=== PATIENT | male | born 1980 | race African-American/Black ===

== ENCOUNTER 2016-12-27 17:01 | Emergency (ER) | payer SELFPAY ==
[2016-12-27 17:22] VITALS: TEMP 97
[2016-12-27] MEDS ORDERED: SODIUM CHLORIDE 0.9% 1,000 ML IV STA (18:31)
[2016-12-27] MEDS ORDERED: DICYCLOMINE 10 MG/ML 2 ML AMP IM STA (18:31)
[2016-12-27] MEDS ORDERED: METOCLOPRAMIDE 5 MG/ML 2 ML VIAL IVP STA (18:31)
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
[2016-12-27 19:59] LABS: Basophils % (A) 0 %; CHCM 31.7; Eosinophils # (A) 0.1 k/uL (0-0.7); Eosinophils % (A) 1 %; HCT 44.5 % (39.0-53.0); HDW 2.19; HGB 13.8 gm/dL (13.0-17.5); Luc # (Auto) 0.05; Luc % (Auto) 0; Lymphocytes # (A) 0.2 k/uL (1.0-4.8); Lymphocytes % (A) 2 %; MCH 27.6 pg (25.0-35.0); MCHC 31.1 g/dL (31.0-37.0); MCV 88.8 fL (80.0-100.0); Mean Platelet Volume 7.8; Monocytes # (A) 0.5 k/uL (0-1.0); Monocytes % (A) 4 %; Neutrophils # (A) 12.5 k/uL (1.3-7.7); Neutrophils % (A) 93 %; RBC 5.01 m/uL (4.30-5.90); RDW 12.6 % (11.5-15.5); WBC 13.4 k/uL (3.8-10.6)
[2016-12-27 20:10] LABS: ALT 31 U/L (21-72); AST 31 U/L (17-59); Alkaline Phosphatase 95 U/L (38-126); Amylase 124 U/L (30-110); Anion Gap 20 mmol/L; Blood Urea Nitrogen 18 mg/dL (9-20); Calcium 9.5 mg/dL (8.4-10.2); Carbon Dioxide 19 mmol/L (22-30); Chloride 108 mmol/L (98-107); Glucose 151 mg/dL (74-99); Non-African American GFR(MDRD) >60 (>60 ml/min/1.73 sqM); Potassium 4.9 mmol/L (3.5-5.1); Sodium 147 mmol/L (137-145); Total Bilirubin 0.6 mg/dL (0.2-1.3); Total Protein 7.6 g/dL (6.3-8.2)
[2016-12-27 21:00] VITALS: BP 131/71; PULSE 81; RESP 16
--- NOTE | 2016-12-27 22:23 | XR ---
EXAMINATION TYPE: XR abdomen 2V DATE OF EXAM: 12/27/2016 7:36 PM COMPARISON: NONE HISTORY: Vomiting and diarrhea x1 day TECHNIQUE: Supine and upright abdominal radiograph obtained FINDINGS: There is a nonobstructive bowel gas pattern. Multiple phleboliths are seen within the pelvi s. No evidence of pneumoperitoneum. No evidence of hepatomegaly. Osseous structures are intact. IMPRESSION: No acute intra-abdominal pathology with nonobstructive bowel gas pattern.
== END 2016-12-27 20:59 | disposition home or self-care (01) ==
LOC: EC 17:01
DX: R11.2 Nausea with vomiting, unspecified (principal); R19.7 Diarrhea, unspecified; E86.0 Dehydration; F17.200 Nicotine dependence, unspecified, uncomplicated
CPT/HCPCS: 99284; 96372; 96374; 36415; 80053; 82150; 83690; 85025; 74020; J0500; J2765

== ENCOUNTER 2020-12-25 02:11 | Emergency (ER) | payer OTHER ==
[2020-12-25] MEDS ORDERED: SODIUM CHLORIDE 0.9% 1,000 ML IV STA ×2 (02:27)
[2020-12-25] MEDS ORDERED: MORPHINE SULFATE 4 MG/ML SYRINGE IV STA (02:27)
[2020-12-25] MEDS ORDERED: KETOROLAC 15 MG/ML 1 ML VIAL IVP STA (02:27)
[2020-12-25] MEDS ORDERED: AZITHROMYCIN 500 MG in SODIUM CHLORIDE 0.9% 250 ML IVPB STA (02:28)
[2020-12-25] MEDS ORDERED: cefTRIAXone IN SWFI 1,000 MG/10 ML SYRINGE IVP STA (02:28)
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
[2020-12-25 03:04] LABS: Albumin 4.2 g/dL (3.5-5.0); Calcium 9.7 mg/dL (8.4-10.2); Potassium 4.2 mmol/L (3.5-5.1); Total Protein 7.6 g/dL (6.3-8.2)
[2020-12-25 03:43] LABS: Appearance,Urine Turbid (Clear); Bilirubin,Urine 1+ (Negative); Blood,Urine Moderate (Negative); Budding Yeast,Urine Few /hpf; Color,Urine Yellow; Glucose,Urine (UA) Trace (Negative); Ketones,Urine 1+ (Negative); Leukocyte Esterase,Urine Large (Negative); Mucus,Urine Many /hpf; Nitrite,Urine Negative (Negative); Protein,Urine 2+ (Negative); RBC,Urine 102 /hpf (0-5); Specific Gravity,Urine 1.027 (1.001-1.035); Squamous Epithelial Cell,Urine 3 /hpf (0-4); WBC,Urine >182 /hpf (0-5)
[2020-12-25] MEDS ORDERED: PENICILLIN G BENZATHINE 1,200,000 UNIT/2 ML SYRINGE IM STA (03:59)
[2020-12-25] MEDS ORDERED: AZITHROMYCIN 500 MG TAB PO STA (03:59)
[2020-12-25 04:01] VITALS: RESP 16
[2020-12-25] MEDS ORDERED: ACET/COD 300 MG/30 MG STARTER PACK 6 TAB BTL PO STA (04:01)
[2020-12-25 05:39] VITALS: BP 89/54; PULSE 85; TEMP 98.3
[2020-12-26 13:57] LABS: N. gonorrhoeae,PCR Positive (Neg,Equiv); Neisseria Source Urine
[2020-12-27 14:36] LABS: C. trachomatis,PCR Equivocal (Neg,Equiv); Chlamydia trachomatis Source Urine
== END 2020-12-25 04:26 | disposition home or self-care (01) ==
LOC: EC 02:11
DX: N34.2 Other urethritis (principal); F17.200 Nicotine dependence, unspecified, uncomplicated
CPT/HCPCS: 36415; 80053; 81001; 87491; 87591; 87086; 99284; 96365; 96375 ×3; 96372; J0561; J2270; J0456; J0696; J1885